=== PATIENT | female | born 1975 | race African-American/Black ===

== ENCOUNTER 2023-08-05 13:12 | Emergency (ER) | payer MEDICAID ==
[~2023-08-05] VITALS: Ht 167.6 cm; Wt 100.0 kg
[2023-08-05 13:33] VITALS: O2SAT 100
[2023-08-05] MEDS: LIDOCAINE HCL 1% 20ML VIAL (Pyxis) INJ INFIL ONE (15:40)
[2023-08-05] MEDS ORDERED: BO1 TP (15:48)
[2023-08-05 17:10] VITALS: BP 130/87; PULSE 88; RESP 18; TEMP 98.2
== END 2023-08-05 17:20 | disposition home or self-care (01) ==
LOC: ER 13:12
DX: S91.205A Unspecified open wound of left lesser toe(s) with damage to nail, initial encounter (principal); M79.672 Pain in left foot; Z90.710 Acquired absence of both cervix and uterus; X58.XXXA Exposure to other specified factors, initial encounter; Y93.89 Activity, other specified; Y92.89 Other specified places as the place of occurrence of the external cause; Y99.8 Other external cause status
CPT/HCPCS: 73620; 99283; J3490; Z7610 ×2